=== PATIENT | female | born 1995 | race Native Hawaiian/Other Pacific Islander ===

== ENCOUNTER 2018-11-10 05:05 | Emergency (ER) | payer BC ==
[~2018-11-10] VITALS: Ht 162.6 cm; Wt 55.3 kg
--- NOTE | 2018-11-10 05:21 | NUR ---
Pt presents to ER for the c/o RLQ pain radiating to right flank x 3 days. Pt was seen in urgent care yesterday and diagnosed with UTI, but here today for worsening pain. Safe environment implemented. Addendum: 11/10/18 at 0522 by RADHA Pt states she also has urgency and dysuria.
[2018-11-10 05:28] LABS: *BILIRUBIN,URIN NEGATIVE (NEGATIVE); *BLOOD, URINE 1+ (NEGATIVE); *CLARITY,URINE CLEAR (CLEAR); *COLOR,URINE YELLOW (YELLOW); *KETONES,URINE NEGATIVE (NEGATIVE); *UROBILINOGEN,URINE 0.2 E.U./dl (NORMAL); LEUKOCYTE ESTERASE ,URINE TRACE (NEGATIVE); NITRITE, URINE NEGATIVE (NEGATIVE); PH,URINE 6.5 (5.0-8.0); UGLUCOSE NEGATIVE (NEGATIVE)
[2018-11-10 05:42] LABS: *URINE HCG, QUAL NEGATIVE (NEGATIVE)
[2018-11-10 05:44] LABS: BACTERIA,URINE NONE SEEN /HPF (NONE SEEN)
[2018-11-10 05:45] LABS: SQUAMOUS EPITHELIAL CELL,UR FEW /HPF (NONE SEEN)
[2018-11-10] MEDS ORDERED: HYDROMORPHONE 1 MG/1 ML DISP.SYRIN ONE (05:53)
[2018-11-10] MEDS ORDERED: ONDANSETRON 4 MG/2 ML VIAL ONE (05:53)
[2018-11-10] MEDS ORDERED: HYDROMORPHONE 1 MG/1 ML DISP.SYRIN IM ONE (06:00)
[2018-11-10] MEDS ORDERED: ONDANSETRON 4 MG/2 ML VIAL IM ONE (06:00)
--- NOTE | 2018-11-10 06:29 | NUR ---
Patient discharged to home in stable conditon. Written and verbal after care instructions given. Patient verbalizes understanding of instructions. Patient states she will uber home with friend. NAD noted at this time.
[2018-11-10 06:30] VITALS: BP 115/74
== END 2018-11-10 06:35 | disposition home or self-care (01) ==
LOC: ER 05:24
DX: N39.0 Urinary tract infection, site not specified (principal); F17.200 Nicotine dependence, unspecified, uncomplicated
CPT/HCPCS: 74176; 81001; 84703; 96372 ×2; 99284; J1170; J2405; A4663